=== PATIENT | male | born 1985 | race Caucasian/White ===

== ENCOUNTER 2022-11-26 07:03 | Emergency (ER) | payer MEDICAID ==
[~2022-11-26] VITALS: Ht 175.3 cm; Wt 90.7 kg
[2022-11-26 07:21] VITALS: BP 141/92; PULSE 118; RESP 18; TEMP 98.9; O2SAT 99
[2022-11-26] MEDS ORDERED: NACL 0.9% 1,000 ML IV ONE (07:30)
[2022-11-26] MEDS ORDERED: cefTRIAXone 1,000 MG VIAL ONE (07:45)
[2022-11-26] MEDS ORDERED: KETOROLAC 30 MG/ML VIAL IVP ONE (08:30)
[2022-11-26] MEDS ORDERED: CEPH-588 PO (08:34)
[2022-11-26 09:21] VITALS: BP 131/90; PULSE 90; RESP 18; TEMP 97.9; O2SAT 98
== END 2022-11-26 09:21 | disposition home or self-care (01) ==
LOC: MED 07:03
DX: L03.116 Cellulitis of left lower limb (principal); F15.90 Other stimulant use, unspecified, uncomplicated; Z71.6 Tobacco abuse counseling; Z79.899 Other long term (current) drug therapy
CPT/HCPCS: 96365; 96375; 99284; J0696; J1885; J7030

== ENCOUNTER 2023-04-11 22:03 | Emergency (ER) | payer SELFPAY ==
[~2023-04-11 22:03] MED LIST: CEPH-588 PO
== END 2023-04-11 23:14 | disposition left against medical advice (07) ==
LOC: MED 22:03
DX: R10.9 Unspecified abdominal pain (principal); Z53.21 Procedure and treatment not carried out due to patient leaving prior to being seen by health care provider